=== PATIENT | male | born 1970 | race Caucasian/White ===

== ENCOUNTER → 2023-08-31 09:08 | Outpatient (REF) | payer SELFPAY | LOC: RAD 09:08 | PROVIDERS: ATTENDING PHYSICIAN Internal Medicine | DX: E78.2 Mixed hyperlipidemia (principal) | CPT/HCPCS: 75571 ==

== ENCOUNTER → 2024-08-11 08:46 | Outpatient (REF) | payer BC, SELFPAY | LOC: RAD 08:46 | PROVIDERS: ATTENDING PHYSICIAN Internal Medicine | DX: R05.3 Chronic cough (principal) | CPT/HCPCS: 71046 ==